=== PATIENT | female | born 2000 | race African-American/Black ===

== ENCOUNTER 2024-11-01 14:08 | Emergency (ER) | payer SELFPAY ==
[2024-11-01] MEDS ORDERED: PRENTAB9 PO (14:32)
[2024-11-01] MEDS ORDERED: ASPI81CH33 PO (14:32)
== END 2024-11-01 14:20 | disposition admitted as inpatient to this hospital (09) ==
LOC: M ED 14:08
DX: Z53.21 Procedure and treatment not carried out due to patient leaving prior to being seen by health care provider (principal)

== ENCOUNTER 2024-11-01 14:20 | Outpatient (CLI) | payer OTHER ==
[~2024-11-01] VITALS: Ht 157.5 cm; Wt 92.0 kg
[2024-11-01] MEDS ORDERED: ASPI81CH33 PO (14:32)
[2024-11-01] MEDS ORDERED: PRENTAB9 PO (14:32)
[2024-11-01 14:39] VITALS: BP 113/63
[2024-11-01] MEDS ORDERED: HOME MED LIST COMPLETE! XX SCH (14:55)
== END 2024-11-01 15:19 | disposition home or self-care (01) ==
LOC: M LDO 14:20
PROVIDERS: ATTEND Advanced Practice Midwife
DX: O26.892 Other specified pregnancy related conditions, second trimester (principal); R19.7 Diarrhea, unspecified; R25.2 Cramp and spasm; Z3A.26 26 weeks gestation of pregnancy; Z91.018 Allergy to other foods
CPT/HCPCS: 59025; G0463

== ENCOUNTER 2025-02-11 08:36 | Inpatient (IN) | payer OTHER ==
[~2025-02-11] VITALS: Ht 157.5 cm; Wt 99.7 kg
[2025-02-11] VITALS (46 sets, daily range): BP systolic 111–155; BP diastolic 54–91; O2SAT 99
[~2025-02-11 08:36] MED LIST: ASPI81CH33 PO; PRENTAB9 PO
[2025-02-11] MEDS ORDERED: OXYTOCIN INJ 10UNITS/ML 1ML VIAL IM PRN (09:40)
[2025-02-11] MEDS ORDERED: METHYLERGONOVINE MALEATE 0.2MG/ML 1ML VIAL IM PRN (09:40)
[2025-02-11] MEDS ORDERED: CARBOPROST TROMETHAMINE 250 MCG/ML AMP IM PRN (09:40)
[2025-02-11 09:52] LABS: HEMATOCRIT 38.3 % (36.0-47.0); HEMOGLOBIN 12.3 g/dl (12.0-15.5); MEAN CORPUSCULAR HEMOGLOBIN 21.4 pg (27.0-33.0); MEAN CORPUSCULAR HGB CONC 32.1 g/dl (32.0-36.5); MEAN CORPUSCULAR VOLUME 66.5 fl (80.0-96.0); PLATELET COUNT, AUTOMATED 353 10^3/uL (150-450); RED BLOOD COUNT 5.76 10^6/uL (4.00-5.40); WHITE BLOOD COUNT 9.7 10^3/uL (4.0-10.0)
[2025-02-11] MEDS: LACTATED RINGER'S 1000 ML IV STA (10:15)
[2025-02-11] MEDS: LR 1,000 ML IV SCH (10:45)
[2025-02-11 10:53] LABS: HIV 1&2 SCREEN NEGATIVE (NEGATIVE)
[2025-02-11 11:00] LABS: HEPATITIS C VIRUS ABY INDEX 0.03 INDEX (<0.8)
[2025-02-11] MEDS ORDERED: LR 500 ML IV PRN (11:10)
[2025-02-11] MEDS ORDERED: diphenhydrAMINE 50MG/ML VIAL IV PRN (11:10)
[2025-02-11] MEDS ORDERED: ePHEDrine SULFATE 25 MG/5 ML(5MG/ML) SYRINGE IVP PRN (11:10)
[2025-02-11] MEDS ORDERED: EPIDURAL/PCA KEYS XX PRN (11:10)
[2025-02-11] MEDS ORDERED: ONDANSETRON 4MG 2ML VIAL IV PRN (11:10)
[2025-02-11] MEDS ORDERED: NALOXONE INJ 0.4MG/1ML VIAL IV PRN (11:10)
[2025-02-11] MEDS: FENTANYL/ROPIVACAINE/NACL BAG 100 ML EPIDURAL SCH (13:21)
[2025-02-11] MEDS: CALCIUM CARBONATE 500 MG CHEW U/D PO PRN (14:49)
[2025-02-11] MEDS: TRANEXAMIC ACID INJection 1,000 MG in NS 100 ML IV PRN (20:10)
[2025-02-11] MEDS: OXYTOCIN DRIP 30 UNITS in IV 1 EA IV PRN (20:12)
[2025-02-11] MEDS: LIDOCAINE 1% MDV 20ML VIAL INFIL PRN (20:12)
[2025-02-11] MEDS ORDERED: MOM 30ML SUSPENSION UDC PO PRN (21:10)
[2025-02-11] MEDS ORDERED: ACETAMINOPHEN 325 MG TAB PO PRN (21:10)
[2025-02-11] MEDS ORDERED: IBUPROFEN 600MG TAB PO PRN (21:10)
[2025-02-11] MEDS ORDERED: RHOGAM 300MCG (1500IU) INJ IM SCH (21:10)
[2025-02-11] MEDS ORDERED: ANUSOL HC CREAM 30GM TOP PRN (21:10)
[2025-02-11] MEDS: IBUPROFEN 800 MG TAB PO PRN (22:00)
[2025-02-11] MEDS: ACETAMINOPHEN 500 MG TAB PO PRN (22:01)
[2025-02-11] MEDS: DIBUCAINE 1% OINTMENT 30GM TOP PRN (23:29)
[2025-02-12 06:00] VITALS: BP 103/51; O2SAT 99
[2025-02-12] MEDS: DOCUSATE SODIUM 100MG CAPSULE PO PRN (07:51)
[2025-02-12] MEDS: PRENATAL VITAMINS CHEWABLE TABLET PO SCH (07:51)
[2025-02-12 18:00] VITALS: BP 111/60; O2SAT 98
[2025-02-13 05:57] VITALS: BP 108/64; O2SAT 100
[2025-02-13] MEDS ORDERED: MEASLES,MUMPS,RUBELLA VACCINE INJ (MMR-II) SC.IMMUN ONE (09:00)
== END 2025-02-13 19:05 | disposition home or self-care (01) | DRG 807 ==
LOC: M LDO 08:36 → M LDI 09:04 → M OBS 22:25
PROVIDERS: ADMIT Advanced Practice Midwife; ATTEND Advanced Practice Midwife
PROC: 10E0XZZ Delivery of Products of Conception, External Approach (ICD-10-PCS; principal; 2025-02-11)
PROC: 0KQM0ZZ Repair Perineum Muscle, Open Approach (ICD-10-PCS; 2025-02-11)
DX: O48.0 Post-term pregnancy (principal); Z37.0 Single live birth; Z3A.40 40 weeks gestation of pregnancy; O70.1 Second degree perineal laceration during delivery

== ENCOUNTER → 2025-02-27 | Outpatient (REF) | payer OTHER ==
[2025-02-27 18:10] LABS: APPEARANCE, URINE CLEAR (CLEAR); BACTERIA, URINE AUTO NEGATIVE (NEGATIVE); BILIRUBIN, URINE AUTO NEGATIVE (NEGATIVE); BLOOD, URINE BLOOD NEGATIVE (NEGATIVE); COLOR, URINE YELLOW (YELLOW); GLUCOSE, URINE (UA) AUTO NEGATIVE (NEGATIVE); KETONE, URINE AUTO NEGATIVE (NEGATIVE); LEUKOCYTE ESTERASE, URINE AUTO 2+ (NEGATIVE); NITRITE, URINE AUTO NEGATIVE (NEGATIVE); PROTEIN, URINE AUTO NEGATIVE (NEGATIVE); RBC, URINE AUTO 0 /HPF (0-3); SPECIFIC GRAVITY URINE AUTO 1.011 (1.002-1.035); SQUAMOUS EPITHELIAL CELL UR AU 3 /HPF (0-6); UROBILINOGEN, URINE AUTO 0.2 mg/dL (0.0-2.0); WBC, URINE AUTO 16 /HPF (0-3)
== END ==
LOC: M SFHCWAGY 16:49
PROVIDERS: ATTEND Obstetrics & Gynecology
DX: R30.0 Dysuria (principal)